=== PATIENT | male | born 1960 | race Caucasian/White ===

== ENCOUNTER 2016-05-22 13:02 | Emergency (ER) | payer OTHER ==
[2016-05-22 13:05] VITALS: BP 120/73
[2016-05-22] MEDS ORDERED: IV NORMAL SALINE 50ML 50 ML ONE (13:39)
[2016-05-22] MEDS ORDERED: CEFTRIAXONE SODIUM 1 GM VIAL IV ONE (13:39)
[2016-05-22] MEDS ORDERED: CEFTRIAXONE SODIUM 1 GM in IV NORMAL SALINE 50ML 50 ML IV ONE (13:45)
[2016-05-22] MEDS ORDERED: KETOROLAC 15 MG/ML VIAL. IV ONE (13:45)
[2016-05-22] MEDS ORDERED: IV NORMAL SALINE 1,000ML 1,000 ML IV ONE (13:45)
--- NOTE | 2016-05-22 13:55 | ED.ADGEN ---
Adult General HPI HPI Patient is a 55-year-old male presents to the emergency department from [place]. He was diagnosed with a UTI at an urgent care yesterday. He did not fill his antibiotics. He tells me he has had several days to 1 week history of intermittent fever, increased urinary frequency, dysuria, chills. Review of his lab work done it [place] this morning demonstrates a small leukocytosis but otherwise unremarkable labs included a negative influenza. He also had a normal chest x-ray performed there today as well. Review of Systems Review of Systems Constitutional: Denies fever or chills [] Eyes: Denies change in visual acuity, redness, or eye pain [] HENT: Denies nasal congestion or sore throat [] Respiratory: Denies cough or shortness of breath [] Cardiovascular: No additional information not addressed in HPI [] GI: Denies abdominal pain, nausea, vomiting, bloody stools or diarrhea [] : Denies dysuria or hematuria [] Musculoskeletal: Denies back pain or joint pain [] Integument: Denies rash or skin lesions [] Neurologic: Denies headache, focal weakness or sensory changes [] Endocrine: Denies polyuria or polydipsia [] Current Medications Current Medications Current Medications Medications (Trade) Dose Ordered Sig/Claribel Start Time Stop Time Status Last Admin Dose Admin Ceftriaxone Sodium/Sodium Chloride (Rocephin/Iv Sodium Chloride 0.9% 50ml) 50 ml @ 100 mls/hr 1X ONCE 05/22/16 13:45 05/22/16 14:14 DC 05/22/16 13:44 100 MLS/HR Ceftriaxone Sodium (Rocephin) 1 gm STK-MED ONCE 05/22/16 13:39 05/22/16 13:40 DC Ketorolac Tromethamine 15 mg 15 mg 1X ONCE 05/22/16 13:45 05/22/16 13:46 DC 05/22/16 13:45 15 MG Sodium Chloride (Iv Sodium Chloride 0.9% 50ml) 50 ml @ As Directed STK-MED ONCE 05/22/16 13:39 05/22/16 13:40 DC Allergies Allergies Allergies Coded Allergies Type Severity Reaction Last Updated Verified No Known Drug Allergies 05/22/16 No Physical Exam Physical Exam Constitutional: Well developed, well nourished, no acute distress, non-toxic appearance. [] HENT: Normocephalic, atraumatic, bilateral external ears normal, oropharynx moist, no oral exudates, nose normal. [] Eyes: PERRLA, EOMI, conjunctiva normal, no discharge. [] Neck: Normal range of motion, no tenderness, supple, no stridor. [] Cardiovascular:Heart rate regular rhythm, no murmur [] Lungs & Thorax: Bilateral breath sounds clear to auscultation [] Abdomen: Bowel sounds normal, soft, no tenderness, no masses, no pulsatile masses. [] Skin: Warm, dry, no erythema, no rash. [] Back: No tenderness, no CVA tenderness. [] Extremities: No tenderness, no cyanosis, no clubbing, ROM intact, no edema. [] Neurologic: Alert and oriented X 3, normal motor function, normal sensory function, no focal deficits noted. [] Psychologic: Affect normal, judgement normal, mood normal. [] Current Patient Data Lab Results Laboratory Tests Test 05/22/16 13:31 POC Troponin I 0.00ng/ml (<0.08) EKG EKG EKG interpreted by me, normal sinus rhythm, 72 beats for minute, normal axis, no ST segment elevation. [] Radiology/Procedures Radiology/Procedures [] Course & Med Decision Making Course & Med Decision Making Pertinent Labs and Imaging studies reviewed. (See chart for details) Physical cardiac cause of his symptoms was about all that was not checked earlier today we did do an troponin and EKG which were both reassuring here. He received IV fluids as well as IV Rocephin. Be discharged home to fill his ciprofloxacin prescribed to him yesterday. He will follow-up with his physician as needed return emergency department sooner she develops new or worsening symptoms. [] Final Impression Final Impression Urinary tract infection [] Problems: Dragon Disclaimer Dragon Disclaimer This electronic medical record was generated, in whole or in part, using a voice recognition dictation system. BOLIVAR ROGERS MD May 22, 2016 13:55
--- NOTE | 2016-05-22 14:40 | EKG ---
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
== END 2016-05-22 14:36 | disposition home or self-care (01) ==
LOC: ER 13:02
DX: N39.0 Urinary tract infection, site not specified (principal)
CPT/HCPCS: 84484; 93005; 96365; 96375; 99284; J0696; J1885; J7030